=== PATIENT | female | born 1970 | race Caucasian/White ===

== ENCOUNTER 2018-12-28 16:01 | Emergency (ER) | payer MEDICAID ==
[~2018-12-28] VITALS: Ht 147.3 cm; Wt 92.5 kg
[2018-12-28 16:19] VITALS: Ht 147.3 cm; Wt 92.5 kg
[2018-12-28 17:49] LABS: BASOPHIL % 0.4 % (0-2); PLATELET COUNT 264 x10^3mcL (130-400); RED CELL DISTRIBUTION WIDTH 13.5 % (11.5-14.5)
[2018-12-28 17:55] LABS: CALCIUM 10.1 mg/dL (8.5-10.1); CARBON DIOXIDE 24.7 mmol/L (21-32); CHLORIDE SERUM 100 mmol/L (98-107); CREATININE SERUM 0.8 mg/dL (0.6-1.0); GFR1 > 60 mL/min; GLUCOSE SERUM 163 mg/dL (74-106); POTASSIUM SERUM 3.7 mmol/L (3.5-5.1); SODIUM SERUM 137 mmol/L (136-145)
[2018-12-28 18:00] LABS: ALBUMIN 3.5 g/dL (3.4-5.0); ALKALINE PHOSPHATASE 123 U/L (46-116); ALT/SGPT 26 U/L (14-59); AST/SGOT 15 U/L (15-37)
[2018-12-28 18:02] LABS: TOTAL PROTEIN, SERUM 8.7 g/dL (6.4-8.2)
[2018-12-28 21:48] VITALS: BP 119/75
== END 2018-12-28 21:48 | disposition short-term general hospital (02) ==
LOC: ED 16:01
PROVIDERS: Emergency Medicine
DX: H05.011 Cellulitis of right orbit (principal); A41.9 Sepsis, unspecified organism; R73.9 Hyperglycemia, unspecified; I10 Essential (primary) hypertension
CPT/HCPCS: 90715; J0690; J0696; J1885; J2001; J7030; J7060; Q9967